=== PATIENT | male | born 1970 | race Caucasian/White ===

== ENCOUNTER 2025-10-16 11:11 | Inpatient (IN) | payer OTHER ==
[~2025-10-16] VITALS: Ht 177.8 cm; Wt 72.6 kg
[2025-10-16 11:52] LABS: BASOPHILS ABSOLUTE AUTO 0.00 K/mm3 (0.00-0.23); BASOPHILS PERCENT AUTO 0 % (0-2); EOSINOPHILS ABSOLUTE AUTO 0.00 K/mm3 (0.00-0.68); EOSINOPHILS PERCENT AUTO 0 % (0-6); Hematocrit 34.5 % (37.0-53.0); Hemoglobin 12.0 g/dL (13.5-17.5); IMMATURE GRAN ABSOLUTE AUTO 0.07 K/mm3 (0.00-0.10); IMMATURE GRAN PERCENT AUTO 3 % (0-1); LYMPHOCYTES ABSOLUTE AUTO 0.33 K/mm3 (0.84-5.20); LYMPHOCYTES PERCENT AUTO 13 % (21-46); MONOCYTES ABSOLUTE AUTO 0.24 K/mm3 (0.16-1.47); MONOCYTES PERCENT AUTO 9 % (4-13); Mean Corpuscular HGB Conc 34.8 g/dL (31.5-36.5); Mean Corpuscular Volume 75 fL (80-100); NEUTROPHILS ABSOLUTE AUTO 1.94 K/mm3 (1.96-9.15); NEUTROPHILS PERCENT AUTO 75 % (41-73); NRBC ABSOLUTE 0.00 K/mm3 (0.00-0.02); NRBC Auto 0.0 /100 WBC (0.0-0.2); Platelet Count 213 K/mm3 (150-400); RDW Coefficient Variation 16.5 % (11.7-14.2); RDW Standard Deviation 44.7 fL (35.1-46.3)
[2025-10-16 12:19] LABS: Alanine Aminotransfer (ALT/SGP 29.0 U/L (12-78); Albumin, Blood 2.9 g/dL (3.4-5.0); Albumin/Globulin Ratio 0.6 (0.8-1.8); Anion Gap 12.0 mmol/L (3-11); Aspartate Aminotrans (AST/SGOT 34.0 U/L (12-37); Bilirubin, Total 0.5 mg/dL (0.1-1.0); Blood Urea Nitrogen 18.0 mg/dL (8-24); CO2, Blood 23.0 mmol/L (21-32); Calcium, Blood 8.0 mg/dL (8.5-10.1); Chloride, Blood 83.0 mmol/L (98-108); Creatinine, Blood 1.08 mg/dL (0.60-1.20); Globulin, Blood 4.8 g/dL (2.2-4.0); Glucose, Blood 94.0 mg/dL (70-99); Potassium, Blood 3.8 mmol/L (3.5-5.5); Sodium, Blood 114.0 mmol/L (136-145); Total Protein, Blood 7.7 g/dL (6.4-8.2)
[2025-10-16 15:23] LABS: U Amphetamine Screen DETECTED; U Barbiturate Screen Not Detected; U Benzodiazapine Screen Not Detected; U Buprenorphine Screen Not Detected; U Cannabinoids Screen DETECTED; U Cocaine Screen Not Detected; U Methadone Screen Not Detected; U Methamphetamine Screen DETECTED; U Opiates Screen Not Detected; U Oxycodone Screen Not Detected; U Phencyclidine Screen Not Detected
[2025-10-16] MEDS ORDERED: Ondansetron HCl 2 MG / ML 2ML Vial IV PRN (15:35)
[2025-10-16] MEDS ORDERED: FLU VACC TS2025-26(6MOS UP)/PF 45 MCG/0.5 ML SYRINGE IM SCH (15:35)
[2025-10-16 17:02] VITALS: BP 111/83
--- NOTE | 2025-10-16 18:05 | NUR ---
ASSUMPTION OF CARE/SHIFT SUMMARY: ASSUMED CARE OF PT AT APPROX 1520. RECIEVED REPORT FROM WINSOME COBOS. PT A/O X4, ABLE TO MAKE NEEDS KNOWN. ALL STRENGTH EQUAL BILATERALLY. SBA TO BATHROOM. ROOM AIR, SATS >95%. SR-ST 80-100s. DENIES CHEST PAIN/PRESSURE. ALL OTHER VITAL SIGNS STABLE. GAVE PT PO SODIUM TABLET THIS EVENING. WILL REPORT NURSE NOTIFY TO NOC NURSE TO REPORT SODIUM RESULTS BEFORE 1999 TO MD. BLADDER SCANNED PT PER ORDER, 50 CC REMAINED AFTER URINATING. PT PLACED ON 1000 ML FLUID RESTRICTION. CURRENTLY LYING IN BED, CALL IN REACH. WILL REPORT TO ONCCRISTINO COBOS.
--- NOTE | 2025-10-16 18:36 | NUR ---
"Spiritual Care | Pt. Request Pt. is awake in bed and welcomes my visit. Facilitaed an introduction and life review listen with empathy and a calming presence. Pt. requested assistance in reaching out to his [employer] court advocate in [place], Father Jean. Pt. also requested a rosary. Facilitated further life review and established a measure of rapport. Pt. displayed evidence of gratitude for the spiritual care visit and assistance. Pt. welcomed prayer. A Rosary and a NT/Psalms are provided. A phone message was left with Father Jean to contact the Pt. through his [facility] room phone. Pt. verbalized gratitude for reaching out to his confessor."
[2025-10-16 20:51] VITALS: BP 104/65
[2025-10-16 23:56] VITALS: BP 98/62
[2025-10-17 03:16] LABS: Hematocrit 36.7 % (37.0-53.0); Hemoglobin 12.7 g/dL (13.5-17.5)
[2025-10-17 03:23] VITALS: BP 104/71
--- NOTE | 2025-10-17 03:49 | NUR ---
SHIFT SUMMARY PT IS A&OX4 ABLE TO VERBALIZE NEEDS AND CALLS APPROPRIATELY. HAS BEEN IN BED THIS SHIFT DUE TO STILL C/O DIZZINESS. VSS ON RA SPO2 > 95%. HE DID HAVE AN INCREASED ORAL TEMP OF 101.7. CALLED AND INFORMED HIM AND TYLENOL WAS GIVEN. TEMP WENT DOWN TO 97.3. HES CURRENTLY NSR IN THE 80' S. HE HAD A SOFT BP AT 98/62 BUT THE LAST ONE WAS 104/71. HE C/O NAUSEA WITH NO EMESIS. ZOFRAN WAS GIVEN WITH GOOD RESULTS. HE'S TOLERATING A REGULAR DIET WITH A 1000 FLUID RESTRICTION. LIKES TO TAKE MEDS WHOLE IN PUDDING. HIS NA LEVEL LAST NIGHT WAS STILL AT 116. CALLED TORREY AND HE STATED TO GIVE 2 TABS OF THE SODIUM CHLORIDE. DR. HIRSCH CAME IN THIS AM AND WANTED THE LABS DONE NOW AND ORDERED ANOTHER 2 TABS OF THE SODIUM CHLORIDE. BED IN LOWEST POSITION, CALL LIGHT IN REACH. RESTING WELL IN BED AT THIS TIME.
[2025-10-17 03:53] LABS: Magnesium, Blood 1.8 mg/dL (1.6-2.4); Thyroid Stimulating Hormone 2.280 uIU/mL (0.360-4.800); Uric Acid, Blood 1.9 mg/dL (3.5-7.2)
[2025-10-17 04:02] LABS: Albumin, Blood 2.5 g/dL (3.4-5.0); Anion Gap 13 mmol/L (3-11); Blood Urea Nitrogen 17 mg/dL (8-24); CO2, Blood 20 mmol/L (21-32); Calcium, Blood 8.0 mg/dL (8.5-10.1); Chloride, Blood 86 mmol/L (98-108); Creatinine, Blood 0.66 mg/dL (0.60-1.20); Glucose, Blood 90 mg/dL (70-99); Phosphorus, Blood 3.2 mg/dL (2.5-4.9); Potassium, Blood 3.5 mmol/L (3.5-5.5); Sodium, Blood 115 mmol/L (136-145)
[2025-10-17] MEDS ORDERED: UREA 15 GM POWD.PACK PO SCH (05:40)
[2025-10-17 07:45] VITALS: BP 98/79
[2025-10-17] MEDS ORDERED: OMEP20ER PO (07:50)
[2025-10-17] MEDS ORDERED: Enoxaparin 40 MG/0.4 ML SYR SC SCH (09:00)
[2025-10-17 11:06] VITALS: BP 90/61
[2025-10-17 15:07] VITALS: BP 91/66
[2025-10-17] MEDS ORDERED: Furosemide 10 MG / ML 2ML Vial IV ONE (16:40)
[2025-10-17] MEDS ORDERED: Potassium Chloride 10 Meq Tablet SA PO ONE (16:40)
[2025-10-17] MEDS ORDERED: UREA 15 GM POWD.PACK PO ONE (16:40)
--- NOTE | 2025-10-17 18:12 | NUR ---
SHIFT SUMMARY PATIENT IS ALERT AND ORIENTED, ABLE TO FOLLOW COMMANDS AND MAKE NEEDS KNOWN. TELE IN PLACE, 80'S-90'S, BP'S SOFT THIS SHIFT, SBP IN 90'S, MAP >65, PATIENT DENYING DIZZINESS, HEADACHE. PATIENT REPORTING SHART LEFT SIDED CHEST PAIN THAT WORSENS WITH INSPIRATION. PROVIDER NOTIFIED, NEW ORDERS RECEIVED. SPO2 >90% ON RA, PATIENT DENIES SHORTNESS OF BREATH OR DIFFICULTY BREATHING. PATIENT REPORTS MILD NAUSEA AFTER MEDICATION ADMINISTRATION THAT SUBSIDES. PATIENT IS CONTINENT OF URINE AND STOOL. FLUID RESTRICTION IN PLACE. PATIENT REPORTING PAIN IN RIGHT DIGITS, DISCOLORATION NOTED TO FINGERS, PROVIDER NOTIFIED. PATIENT IS A SBA TO THE BATHROOM. PATIENT IS UP IN BED, BED IN LOWEST POSITION, CALL LIGHT WITHIN REACH.
[2025-10-17 18:43] LABS: Anti-Xa UFH, PHA Monitoring <0.10 IU/mL; Prothrombin Time Results 12.2 Sec (9.7-11.5)
[2025-10-17] MEDS ORDERED: Heparin Sodium,Porcine/0.5 NS 500 ML IV SCH (19:00)
[2025-10-17 20:02] VITALS: BP 105/70
[2025-10-18] VITALS (8 sets, daily range): BP systolic 95–118; BP diastolic 56–81
[2025-10-18 03:00] LABS: Hematocrit 34.6 % (37.0-53.0); Hemoglobin 12.0 g/dL (13.5-17.5)
[2025-10-18 03:23] LABS: Albumin, Blood 2.5 g/dL (3.4-5.0); Anion Gap 10 mmol/L (3-11); Blood Urea Nitrogen 23 mg/dL (8-24); CO2, Blood 22 mmol/L (21-32); Calcium, Blood 8.1 mg/dL (8.5-10.1); Chloride, Blood 95 mmol/L (98-108); Creatinine, Blood 0.67 mg/dL (0.60-1.20); Glucose, Blood 94 mg/dL (70-99); Magnesium, Blood 2.0 mg/dL (1.6-2.4); Phosphorus, Blood 3.3 mg/dL (2.5-4.9); Potassium, Blood 3.7 mmol/L (3.5-5.5); Sodium, Blood 123 mmol/L (136-145)
[2025-10-18] MEDS ORDERED: Dose Adjust by Pharmacy XX STA (03:50)
[2025-10-18] MEDS ORDERED: Heparin Sodium 5000 Units/ML 1ML MDV IV ONE (03:55)
--- NOTE | 2025-10-18 04:45 | NUR ---
ADMITTED TONIGHT FROM ER FOR PELVIC INJURY. PT STATES HAS NO HX FALLS.PT HAS HX RECENT R HIP SURGERY,TELFA APPEARING DRESSING WAS NOT FULLY INTACT AROUND EDGES,SCANT SEROUS DRNG TO OUTER LEDGES AND SCANT DRIED DRNG TO CENTER LINE, REPLACED DRESSING WITH ANTIMICROBIAL TELFA.INCISION APPEARS C D/I.PT C/O BURNING BEHIND R KNEE REPORTS FEELS LIKE A "RASH" NO VISIBLE RASH, BUT DIRECTLY BEHIND R KNEE DOES APPEAR SLIGHTLY WILL THAN BEHIND L KNEE AND ALSO NOTED MILD PINK COLORING WHEN COMPARED TO BEHIND L KNEE,NO TEMPERATURE DIFFERENCES NOTED,BILAT PEDAL PULSES PRESENT.PT C/O FENTANYL EFFECTIVE, BUT NOT LASTING 4 HR INTERVAL ORDERED.I CALLED DR BOBO AND NOTIFIED OF ABOVE. RECEIVED ORDERS FOR DILAUDID IV AND CHANGED PAS ORDER TO LLE ONLY. PT WITH NO C/O CALF TENDERNESS.BIALT FEET RED WITH MULTIPLE TOENAILS DISINTEGRATING OR ALREADY MISSING.PT REPORTS CHRONIC FUNGAL DISEASE.
--- NOTE | 2025-10-18 05:19 | NUR ---
SHIFT SUMMARY:: PT IS A&OX4 ABLE TO VERBALIZE NEEDS AND CALLS APPROPRIATELY. HAS BEEN IN BED THIS SHIFT DUE TO STILL ? DIZZINESS. VSS ON RA SPO2 > 95%. HE DID HAVE LOW GRADE TEMPS OF 99.8 AND 99.9. HES CURRENTLY NSR IN THE 70-90 S. BP IN THE 100 S. HE ? NAUSEA WITH NO EMESIS. ZOFRAN WAS GIVEN WITH GOOD RESULTS. HE'S TOLERATING A REGULAR DIET WITH A 1000 FLUID RESTRICTION. LIKES TO TAKE MEDS WHOLE IN PUDDING OR APPLESAUCE. HIS NA LEVEL AT 1999 WAS 124 AND THIS AM WAS 123. CALLED TORREY AND HE STATED TO GIVE AN ADDITIONAL 2GM OF SODIUM NOW THAN AGAIN AT 0600. HIS RIGHT HAND TIPS OF FINGERS REMAIN PURPLE BUT HE HAS GOOD RADIAL PULSES. HE WAS STARTED ON HEPARIN AT 15U/KG/HR HEPARIN LAB WAS DONE AND IT WAS 0.27. A HEPARIN BOLUS WAS GIVEN OF 1825 THEN HEPARIN DRIP WAS INCREASED TO 17 UNIT/KG/HR AND 24.8ML/HR. LAB WILL BE RECHECKED AT 1000. NO ? CHEST PAIN THIS SHIFT. SODIUM WILL BE RECHECKED AT [address] HIRSCH WANTS A CALL BEFORE 1100. BED IN LOWEST POSITION, CALL LIGHT IN REACH. RESTING WELL IN BED AT THIS TIME.
[2025-10-18 05:28] LABS: Platelet Count 208 K/mm3 (150-400)
[2025-10-18] MEDS ORDERED: UREA 15 GM POWD.PACK PO SCH (09:00)
[2025-10-18 12:01] LABS: Potassium, Blood 4.0 mmol/L (3.5-5.5); Sodium, Blood 125.0 mmol/L (136-145)
[2025-10-18] MEDS ORDERED: Potassium Chloride 10 Meq Tablet SA PO ONE (18:30)
[2025-10-18] MEDS ORDERED: Furosemide 10 MG / ML 2ML Vial IV ONE (18:30)
--- NOTE | 2025-10-18 19:34 | NUR ---
SHIFT SUMMARY: PATIENT A+O X3 AND ABLE TO MAKE NEEDS KNOWN. PATIENT IS AT TIMES NOTED TO HAVE DIFFICULTY MANAGING TASKS ON THEIR OWN. IS ALSO SHORT TEMPERED. WHEN THIS NURSE WAS ADMINISTERING SODIUM TABLETS, THE PATIENT YELLED "YOURE GIVING ME TOO MANY THINGS". CALMED PATIENT WITH THERAPUTIC LISTENING. SODIUM REMAINS 125 AT THIS TIME. PLAN TO LOOK FOR POSSIBLE DRUG REHABILITATION UPON DISCHARGE. WILL REPORT TO ONCOMING NURSE.
--- NOTE | 2025-10-18 22:41 | NUR ---
UPDATE PT REFUSED 2200 SODIUM CHLORIDE 2G DOSAGE. PT EDUCATED REGARDING HIS CURRENT SODIUM LEVELS AND THE RISKS OF DENYING MEDICATION. PT STATED, "IT'S TOO MUCH. I WILL TAKE IT IN THE MORNING. JUST LEAVE.".
--- NOTE | 2025-10-19 01:33 | NUR ---
PT REQUESTED H20 ORALLY AND WAS GIVEN 60 ML THAT WAS AMNT LEFT ON DAILY FLUID RESTRICTION OF 1000 ML.PT VERB HE IS "PISSED " STATED HE WAS TOLD HIS DAILY RESTRICTION WOULD START OVER AGAIN AT MIDNIGHT.I DISCUSSED HOW FLUID RESTRICTION USUALLY WORKS AND ADVISED THAT HE ALREADY HAD 940 ML SINCE 11 AM, SO COULD NOT GIVE MORE.PT STATING HE WAS GOING TO TALK WITH DR HIRSCH IN AM AND I AGREED WITH THIS,BUT STILL COULD NOT GIVE MORE H20 UNLESS OKD WITH .PT STATING "THAT'S RIGHT YOU ARE NEVER WRONG"PT THREATENED TO GET WATER FROM [facility]. DISCUSSED RISKS OF LOW SODIUM PT ALSO REFUSED HIS 2200 DOSE OF SALT TABS.I SPOKE WITH MANAGER OUTPATIENT AND CALLED HOSPITALIST TO EXPLAIN ABOVE AND DISCUSS FLUID RESTRICTION LIMITS ORDERED BY DR HIRSCH.I OBTAINED ORDER TO GIVE PT ADDITIONAL 300 MLS FLUID PO.PT NURSE GAVE THIS.
--- NOTE | 2025-10-19 01:45 | NUR ---
TRANSFERED TO MEDICAL FLOOR ROOM 351 VIA HOSPITAL BED BY PATIENT REGISTRAR AND NURSE. NO SIGNS OF DISTRESS NOTED. REPORT GIVEN TO PAOLA ARTEAGA RN.
[2025-10-19 01:55] VITALS: BP 113/71
[2025-10-19 06:03] LABS: Hematocrit 36.4 % (37.0-53.0); Hemoglobin 12.5 g/dL (13.5-17.5)
[2025-10-19 06:32] LABS: Albumin, Blood 2.6 g/dL (3.4-5.0); Anion Gap 11 mmol/L (3-11); Blood Urea Nitrogen 27 mg/dL (8-24); CO2, Blood 23 mmol/L (21-32); Calcium, Blood 8.4 mg/dL (8.5-10.1); Chloride, Blood 95 mmol/L (98-108); Creatinine, Blood 0.61 mg/dL (0.60-1.20); Glucose, Blood 99 mg/dL (70-99); Magnesium, Blood 1.9 mg/dL (1.6-2.4); Phosphorus, Blood 3.0 mg/dL (2.5-4.9); Potassium, Blood 3.6 mmol/L (3.5-5.5); Sodium, Blood 125 mmol/L (136-145)
--- NOTE | 2025-10-19 06:34 | NUR ---
ASSUMED CARE AT 0150. A/Ox4, VSS ON RA. [address]. PT DENIES PAIN, NAUSEA, SOB. NO ACUTE CHANGES OVERNIGHT. DR. HIRSCH ROUNDED, NEW ORDERS RECEIVED TO INCREASE FLUID RESTRICTION TO 1300 ML; ADDITIONAL 2G SODIUM NOW, STAT SODIUM DRAW AT 1200. PLEASE CALL DR. HIRSCH BY 1300 WITH RESULTS.
[2025-10-19 08:07] VITALS: BP 104/80
[2025-10-19 12:03] VITALS: BP 108/72
--- NOTE | 2025-10-19 13:06 | NUR ---
CALLED DR HIRSCH WITH SODIUM LEVEL. STATED TO CONTINUE WITH CURRENT PLAN AND WILL CHECK LABS IN AM.
[2025-10-19 15:53] VITALS: BP 121/94
--- NOTE | 2025-10-19 18:23 | NUR ---
SHIFT SUMMARY PATIENT INDEPENDENT IN ROOM. CONTINUING WITH CURRENT SODIUM REPLACEMENT PLAN, TORREY CONSULTED. WESLY CONSULTED FOR SAFE DISCHARGE PLAN.
[2025-10-19 20:27] VITALS: BP 105/71
[2025-10-20] VITALS (7 sets, daily range): BP systolic 98–120; BP diastolic 65–86
[2025-10-20 06:16] LABS: Hematocrit 35.1 % (37.0-53.0); Hemoglobin 11.8 g/dL (13.5-17.5)
[2025-10-20 06:46] LABS: Albumin, Blood 2.7 g/dL (3.4-5.0); Anion Gap 7 mmol/L (3-11); Blood Urea Nitrogen 25 mg/dL (8-24); CO2, Blood 25 mmol/L (21-32); Calcium, Blood 8.4 mg/dL (8.5-10.1); Chloride, Blood 95 mmol/L (98-108); Creatinine, Blood 0.59 mg/dL (0.60-1.20); Glucose, Blood 94 mg/dL (70-99); Magnesium, Blood 2.0 mg/dL (1.6-2.4); Phosphorus, Blood 3.0 mg/dL (2.5-4.9); Potassium, Blood 3.6 mmol/L (3.5-5.5); Sodium, Blood 123 mmol/L (136-145)
--- NOTE | 2025-10-20 07:24 | NUR ---
0649- telephone verbal from md peterson to order an extra dose of 2gm sodium tablet and 30gm urea both now stat. sodium lab check stat at 1200.
[2025-10-20] MEDS ORDERED: UREA 15 GM POWD.PACK PO ONE (07:30)
--- NOTE | 2025-10-20 18:12 | NUR ---
SUMMARY- AAOX3-4. PT EASILY IRRITATED AND ANXIOUS THIS SHIFT ASKING TO BE LEFT ALONE MOST OF THE SHIFT. SBA. ON RA. PT PARTICULAR WITH THINGS IN HIS ROOM AND ORDER OF EVENTS, SO MUCH THAT PT BECAME UPSET MULTIPLE TIMES THIS SHIFT. PT REMINDED WE ARE ONLY HERE TO HELP HIM. PT HAS GOOD APPETITE AND DOES ADHERE TO FLUID RESTRICTION.
[2025-10-21 04:05] VITALS: BP 103/70
--- NOTE | 2025-10-21 04:26 | NUR ---
SHIFT SUMMARY 54 YR M ADMITTED ON 10/16/25. FULL CODE. NO ACUTE CHANGES THIS SHIFT. PT BECAME AGITATED AT HIS FLUID RESTRICTION AND STATED THAT THIS NURSE WAS LYING TO HIM ABOUT HIS LIMITS. HE DEMANDED ICE CHIPS AND WHEN THEY WERE GIVEN TO HIM HE GOT ANGRY STATING THAT IT WASN'T ENOUGH. HE ANGRILY GRABBED THE CUP OF ICE AND SPILLED THE WHOLE THING ON THE FLOOR. THIS NURSE EDUCATED PT ON THE REASON FOR THE FLUID RESTRICTION AND REMINDED PT THAT HIS BEHAVIOR WAS NOT OK AND THAT WE ARE ONLY HERE TO HELP. NO C/O PAIN OR DISCOMFORT THIS SHIFT. DENIES CHEST PAIN OR PRESSURE. BED IN LOW POSITION AND CALL LIGHT IN REACH.
[2025-10-21 06:06] LABS: Hematocrit 34.2 % (37.0-53.0); Hemoglobin 11.5 g/dL (13.5-17.5)
[2025-10-21 06:36] LABS: Albumin, Blood 2.5 g/dL (3.4-5.0); Anion Gap 11 mmol/L (3-11); Blood Urea Nitrogen 29 mg/dL (8-24); CO2, Blood 23 mmol/L (21-32); Calcium, Blood 8.4 mg/dL (8.5-10.1); Chloride, Blood 96 mmol/L (98-108); Creatinine, Blood 0.59 mg/dL (0.60-1.20); Glucose, Blood 101 mg/dL (70-99); Magnesium, Blood 1.9 mg/dL (1.6-2.4); Phosphorus, Blood 2.9 mg/dL (2.5-4.9); Potassium, Blood 3.5 mmol/L (3.5-5.5); Sodium, Blood 126 mmol/L (136-145)
[2025-10-21 07:20] VITALS: BP 119/84
--- NOTE | 2025-10-21 07:39 | NUR ---
0715- VERBAL FROM MD HIRSCH TO ORDER X1 EXTRA DOSE NOW OF 2GM SODIUM TABLET.
[2025-10-21 11:46] VITALS: BP 114/81
[2025-10-21 15:51] VITALS: BP 123/82
--- NOTE | 2025-10-21 18:01 | NUR ---
SUMMARY- AAOX2-3. PT LESS IRRITABLE THIS SHIFT, BUT STILL MODERATELY ANXIOUS. PT ADHERING TO FLUID RESTRICTION. SBA. ON RA. NO ACUTE EVENTS THIS SHIFT. GOOD APPETITE. NO COMPLAINTS OF PAIN THIS SHIFT.
[2025-10-21 19:45] VITALS: BP 112/76
[2025-10-22 03:53] VITALS: BP 112/80
--- NOTE | 2025-10-22 04:15 | NUR ---
SHIFT SUMMARY NO ACUTE CHANGES THIAS SHIFT. PT HAS SLEPT FOR MOST OF THE NIGHT. HE HAS BEEN MUCH MORE PLEASANT AND COOPERATIVE TONIGHT THAN HE WAS LAST NIGHT. HE HAS NOT COMPLAINED ABOUT HIS FLUID RESTRICTION AND HE HAS BEEN POLITE AND THANKFUL FOR HIS CARE. HE IS INDEPENDANT IN THE ROOM AND CALLS APPROPRIATELY FOR ASSISTANCE. NO NEW CHANGES TO REPORT. BED IN LOW POSITION AND CALL LIGHT IN REACH.
[2025-10-22 05:57] LABS: Hematocrit 33.8 % (37.0-53.0); Hemoglobin 11.6 g/dL (13.5-17.5)
[2025-10-22 06:32] LABS: Albumin, Blood 2.5 g/dL (3.4-5.0); Anion Gap 9 mmol/L (3-11); Blood Urea Nitrogen 24 mg/dL (8-24); CO2, Blood 23 mmol/L (21-32); Calcium, Blood 8.5 mg/dL (8.5-10.1); Chloride, Blood 96 mmol/L (98-108); Creatinine, Blood 0.62 mg/dL (0.60-1.20); Glucose, Blood 94 mg/dL (70-99); Magnesium, Blood 2.1 mg/dL (1.6-2.4); Phosphorus, Blood 2.8 mg/dL (2.5-4.9); Potassium, Blood 3.6 mmol/L (3.5-5.5); Sodium, Blood 124 mmol/L (136-145)
[2025-10-22] MEDS ORDERED: UREA 15 GM POWD.PACK PO ONE (07:15)
[2025-10-22 07:39] VITALS: BP 108/87
--- NOTE | 2025-10-22 11:02 | NUR ---
1100 THAD FROM PCU CALLED TO REPORT PATIENT TACHY UP TO 130 FOR A FEW MINUTES BUT HAS COME BACK DOWN TO LOW 100'S AND HIGH 90'S. EYES ON PATIENT REVEALS HE WAS UP MOVING AROUND WITH COMMUNITY HEALTH WORKER LOOKING AT SOME CLOTHES SHE BROUGHT HIM. PATIENT STATED HE WAS EXCITED.
[2025-10-22 11:36] VITALS: BP 119/90
--- NOTE | 2025-10-22 14:44 | NUR ---
Pt. is awake in bed and filling out forms when he welcomes my visit. Facilitated an update on both his prognosis and whether he ever got a response from his [employer] life manager. Pt. confirmed that his life manager had contacted him. Pt. displayed evidenc of trust and engagement as he verbalized some details of his past that did not come up during our first visit. Listen with emapthy and interest. Prayed with the Pt. Pt. verbalized gratitude for the spiritual care visit.
[2025-10-22 16:16] VITALS: BP 125/92
--- NOTE | 2025-10-22 16:49 | NUR ---
SHIFT SUMMARY PATIENT IS A&OX4. HE IS MOSTLY COOPERATIVE WITH CARE, HOWEVER, DOES STRUGGLE WITH THE FLUID RESTRICTION AND TRIES TO MAKE DEALS TO GET MORE WATER OR ICE, CONVINCED WHEN THE ICE MELTS IN THE CUP THAT HE IS LOSING WATER FROM THE CUP. HE IS MOSTLY REDIRECTABLE. HE IS ON ROOM AIR AND DOES HAVE TELE. NSR FOR MOST OF THE DAY EXCEPT FOR ONE EPISODE OF SINUS TACHYCARDIA IN THE 130'S WHICH OCCURRED WHEN THE COMMUNITY HEALTH WORKER WAS IN THE ROOM GIVING HIM CLOTHES AND PATIENT GOT EXCITED. HE IS INDEPENDENT IN THE ROOM AND CONTINENT. THIS MORNING NA LEVEL WAS 126. BED IS LOW AND LOCKED, CALL LIGHT IS WITHIN REACH.
[2025-10-22 20:19] VITALS: BP 107/70
[2025-10-23 00:37] VITALS: BP 104/68
[2025-10-23 04:33] VITALS: BP 126/93
[2025-10-23 05:41] LABS: Hematocrit 34.5 % (37.0-53.0); Hemoglobin 11.7 g/dL (13.5-17.5)
[2025-10-23 06:13] LABS: Albumin, Blood 2.6 g/dL (3.4-5.0); Anion Gap 10 mmol/L (3-11); Blood Urea Nitrogen 26 mg/dL (8-24); CO2, Blood 24 mmol/L (21-32); Calcium, Blood 8.2 mg/dL (8.5-10.1); Chloride, Blood 96 mmol/L (98-108); Creatinine, Blood 0.59 mg/dL (0.60-1.20); Glucose, Blood 100 mg/dL (70-99); Magnesium, Blood 2.1 mg/dL (1.6-2.4); Phosphorus, Blood 2.9 mg/dL (2.5-4.9); Potassium, Blood 3.6 mmol/L (3.5-5.5); Sodium, Blood 126 mmol/L (136-145)
[2025-10-23] MEDS ORDERED: Potassium Chloride 10 Meq Tablet SA PO SCH (09:00)
[2025-10-23 11:23] VITALS: BP 119/85
[2025-10-23 16:16] VITALS: BP 106/84
--- NOTE | 2025-10-23 16:53 | NUR ---
ASSUMED CARE OF PT PT VERY PLEASENT AND IS A/O X 4 COOPERATIVE WITH CARE AND MAKES NEEDS KNOWN. NA LOW AT 126 AND TREATED PER MAR. NO C/O PAIN NO DISTRESS. PT HAS BEEN AMB IN [place] AND HAS REQUESTED TO BE ALLOWED TO GET FRESH AIR. DR VILCHIS AWARE AND OK WITH PT GOING OUTSIDE.
[2025-10-23 19:54] VITALS: BP 126/95
[2025-10-24 00:04] VITALS: BP 104/67
[2025-10-24 04:43] VITALS: BP 107/73
[2025-10-24 06:12] LABS: Hematocrit 33.0 % (37.0-53.0); Hemoglobin 11.0 g/dL (13.5-17.5)
[2025-10-24 06:36] LABS: Magnesium, Blood 2.1 mg/dL (1.6-2.4)
[2025-10-24 06:37] LABS: Albumin, Blood 2.7 g/dL (3.4-5.0); Anion Gap 10 mmol/L (3-11); Blood Urea Nitrogen 28 mg/dL (8-24); CO2, Blood 23 mmol/L (21-32); Calcium, Blood 8.3 mg/dL (8.5-10.1); Chloride, Blood 98 mmol/L (98-108); Creatinine, Blood 0.59 mg/dL (0.60-1.20); Glucose, Blood 112 mg/dL (70-99); Phosphorus, Blood 3.4 mg/dL (2.5-4.9); Potassium, Blood 3.5 mmol/L (3.5-5.5); Sodium, Blood 127 mmol/L (136-145)
[2025-10-24 07:53] VITALS: BP 119/99
[2025-10-24 11:20] VITALS: BP 115/83
--- NOTE | 2025-10-24 11:56 | NUR ---
Met with Pt. in the hallway. Pt. verbalizes that he expects to discharge to the [facility] sometime today. Pt. requested information regarding a local latter day meeting. Pt. verbalized gratitude for the spiritual care support during his stay.
[2025-10-24] MEDS ORDERED: ELIQUIS5 M2 PO (12:17)
[2025-10-24] MEDS ORDERED: HYDSUL200 PO (12:17)
[2025-10-24] MEDS ORDERED: Calcium Carbon500 MG PO (12:17)
[2025-10-24] MEDS ORDERED: FURO40 PO (12:17)
[2025-10-24] MEDS ORDERED: POTA10T PO (12:18)
[2025-10-24] MEDS ORDERED: PROP10 PO (12:18)
[2025-10-24] MEDS ORDERED: SODCHL1 PO (12:19)
[2025-10-24] MEDS ORDERED: URE-NA PO (12:20)
== END 2025-10-24 14:27 | disposition home or self-care (01) | DRG 641 ==
LOC: ER 11:11 → MEDS 15:34 → PCU 15:34 → SURS 10-18 07:11 → MEDS 10-19 01:53
PROVIDERS: Emergency Medicine; Internal Medicine Nephrology; Physician Assistant; ADMIT Internal Medicine
DX: E87.1 Hypo-osmolality and hyponatremia (principal); Z59.01 Sheltered homelessness; I42.9 Cardiomyopathy, unspecified; I82.621 Acute embolism and thrombosis of deep veins of right upper extremity; E44.0 Moderate protein-calorie malnutrition; E88.09 Other disorders of plasma-protein metabolism, not elsewhere classified; M32.9 Systemic lupus erythematosus, unspecified; D64.9 Anemia, unspecified; F17.210 Nicotine dependence, cigarettes, uncomplicated; R50.9 Fever, unspecified; F15.10 Other stimulant abuse, uncomplicated; R00.0 Tachycardia, unspecified; Z23 Encounter for immunization; Z88.5 Allergy status to narcotic agent; Z79.899 Other long term (current) drug therapy; Z79.01 Long term (current) use of anticoagulants; Z68.22 Body mass index [BMI] 22.0-22.9, adult
CPT/HCPCS: 36415; 80053; 80069; 80320; 82533; 83690; 83735; 83930; 84132; 84295; 84300; 84443; 84484; 84550; 85014; 85018; 85025; 85049; 85520; 85610; 85730; 87040; 93005; 93010; 93931; 99285-25; A9270; C8929; J1644; J1650; J1938; J2405; Q9957

== ENCOUNTER 2025-11-11 08:32 | Emergency (ER) | payer OTHER ==
[~2025-11-11] VITALS: Ht 177.8 cm; Wt 72.6 kg
[~2025-11-11 08:32] MED LIST: Calcium Carbon500 MG PO; ELIQUIS5 M2 PO; FURO40 PO; HYDSUL200 PO; OMEP20ER PO; POTA10T PO; PROP10 PO; SODCHL1 PO; URE-NA PO
[2025-11-11 09:16] LABS: BASOPHILS ABSOLUTE AUTO 0.03 K/mm3 (0.00-0.23); BASOPHILS PERCENT AUTO 1 % (0-2); EOSINOPHILS ABSOLUTE AUTO 0.04 K/mm3 (0.00-0.68); EOSINOPHILS PERCENT AUTO 1 % (0-6); Hematocrit 31.3 % (37.0-53.0); Hemoglobin 10.7 g/dL (13.5-17.5); IMMATURE GRAN ABSOLUTE AUTO 0.10 K/mm3 (0.00-0.10); IMMATURE GRAN PERCENT AUTO 2 % (0-1); LYMPHOCYTES ABSOLUTE AUTO 0.39 K/mm3 (0.84-5.20); LYMPHOCYTES PERCENT AUTO 8 % (21-46); MONOCYTES ABSOLUTE AUTO 0.39 K/mm3 (0.16-1.47); MONOCYTES PERCENT AUTO 8 % (4-13); Mean Corpuscular HGB Conc 34.2 g/dL (31.5-36.5); Mean Corpuscular Volume 77 fL (80-100); NEUTROPHILS ABSOLUTE AUTO 4.02 K/mm3 (1.96-9.15); NEUTROPHILS PERCENT AUTO 81 % (41-73); NRBC ABSOLUTE 0.00 K/mm3 (0.00-0.02); NRBC Auto 0.0 /100 WBC (0.0-0.2); Platelet Count 241 K/mm3 (150-400); RDW Coefficient Variation 16.4 % (11.7-14.2); RDW Standard Deviation 46.5 fL (35.1-46.3)
[2025-11-11 09:47] LABS: Alanine Aminotransfer (ALT/SGP 27.0 U/L (12-78); Albumin, Blood 2.6 g/dL (3.4-5.0); Albumin/Globulin Ratio 0.6 (0.8-1.8); Anion Gap 10.0 mmol/L (3-11); Aspartate Aminotrans (AST/SGOT 19.0 U/L (12-37); Bilirubin, Total 0.5 mg/dL (0.1-1.0); Blood Urea Nitrogen 10.0 mg/dL (8-24); CO2, Blood 26.0 mmol/L (21-32); Calcium, Blood 8.2 mg/dL (8.5-10.1); Chloride, Blood 91.0 mmol/L (98-108); Creatinine, Blood 0.71 mg/dL (0.60-1.20); Globulin, Blood 4.3 g/dL (2.2-4.0); Glucose, Blood 96.0 mg/dL (70-99); Potassium, Blood 3.8 mmol/L (3.5-5.5); Sodium, Blood 123.0 mmol/L (136-145); Total Protein, Blood 6.9 g/dL (6.4-8.2)
[2025-11-11] MEDS ORDERED: SODCHL1 PO (10:31)
== END 2025-11-11 10:52 | disposition home or self-care (01) ==
LOC: ER 08:32
PROVIDERS: Emergency Medicine
DX: R53.83 Other fatigue (principal); Z88.5 Allergy status to narcotic agent; Z79.01 Long term (current) use of anticoagulants; Z79.899 Other long term (current) drug therapy; F17.210 Nicotine dependence, cigarettes, uncomplicated
CPT/HCPCS: 71046; 80053; 85025; 93005; 93010; 99285-25